=== PATIENT | male | born 1990 | race Hispanic/Latino ===

== ENCOUNTER 2018-04-04 18:00 | Emergency (ER) | payer OTHER ==
[2018-04-04] MEDS ORDERED: LIDOCAINE 1%-EPI 1:100,000 20 ML VIAL IJ ONE (18:32)
== END 2018-04-04 20:38 | disposition home or self-care (01) ==
LOC: EDH 18:00
DX: S01.511A Laceration without foreign body of lip, initial encounter (principal); S59.802A Other specified injuries of left elbow, initial encounter; Z87.891 Personal history of nicotine dependence; Y04.0XXA Assault by unarmed brawl or fight, initial encounter; Y93.89 Activity, other specified; Y92.89 Other specified places as the place of occurrence of the external cause; Y99.8 Other external cause status
CPT/HCPCS: 12011; 73080; 99283; J3490